=== PATIENT | female | born 1950 | race Caucasian/White ===

== ENCOUNTER 2021-09-07 05:34 | Emergency (ER) | payer MEDICARE ==
[~2021-09-07] VITALS: Ht 165.1 cm; Wt 91.3 kg
[~2021-09-07 05:34] MED LIST: ACTOS15 MG PO; ALBU17AE23 IH; LISI1TAB PO; LVT.1T PO; OMEG-12 PO
[2021-09-07] MEDS ORDERED: NS IV 1000 ML 1,000 ML IV SCH (06:00)
[2021-09-07] MEDS ORDERED: ONDANSETRON 4 MG/2 ML (SDV) Z0FRAN IVP ONE (06:00)
[2021-09-07] MEDS ORDERED: KETOROLAC 30 MG/ML VIAL IVP ONE (06:00)
[2021-09-07] MEDS ORDERED: FAMOTIDINE 20MG/2ML IV (PEPCID) IVP ONE (06:00)
--- NOTE | 2021-09-07 06:01 | ED Cardiac General ---
History of Present Illness General Chief Complaint: Cardiac/General Problems Stated Complaint: CHEST/BACK PAIN;VOMITTING;ABD PAIN Source: patient Exam Limitations: no limitations History of Present Illness Date Seen by Provider: Sep 07, 2021 Time Seen by Provider: 05:45 Initial Comments Patient is a 71-year-old female with history of type 2 diabetes and hyperlipidemia who wakes with body aches fever chills, chest, back and epigastric pain with nausea and vomiting. She states she has vomited multiple times throughout the evening. She denies any diarrhea. Reports cough with green phlegm production. Denies sore throat, shortness of breath wheezing or exertional chest pain. No other symptoms or complaints. Timing/Duration: 4-6 hours Severity: moderate Activities at Onset: other Prior CP/Workup: other Associated Systoms: Other Allergies and Home Medications Allergies Coded Allergies: No Known Drug Allergies (Unverified , 12/30/10) Patient Home Medication List Home Medication List Reviewed: Yes Albuterol (Ventolin) 17 Gm Aerosol, 2 PUFF IH Q4H PRN, (Reported) Entered as Reported by: GABBIE QUINTEROS on 12/30/10910 Last Action: Last Taken Edited Levothyroxine Sodium (Levothyroxine 100 Mcg Tab) 100 Mcg Tablet, 1 EACH PO DAILY, (Reported) Entered as Reported by: GABBIE QUINTEROS on 12/30/10917 Last Action: Reviewed [place]-3/Dha/Epa/Fish Oil (Fish Oil 1,000 Mg Ec Softgel) 1 Each Capsule.dr, 3 EACH PO HS, (Reported) Entered as Reported by: GABBIE QUINTEROS on 12/30/10910 Last Action: Edited Discontinued Medications Hctz/Lisinopril (Lisinopril-Hctz 20-12.5 Mg Tab) 1 Each Tablet, 1 EACH PO DAILY, (Reported) Discontinued Reason: Referral/FU Appt-Addtl Entered as Reported by: GABBIE QUINTEROS on 12/30/10910 Last Action: Discontinued Pioglitazone Hcl (Actos) 15 Mg Tablet, 1 TAB PO DAILY, (Reported) Discontinued Reason: Referral/FU Appt-Addtl Entered as Reported by: GABBIE QUINTEROS on 12/30/10910 Last Action: Discontinued Review of Systems Review of Systems Constitutional: see HPI EENTM: See HPI Respiratory: See HPI Cardiovascular: See HPI Gastrointestinal: See HPI Genitourinary: See HPI Musculoskeletal: see HPI Skin: see HPI Psychiatric/Neurological: See HPI Endocrine: See HPI Hematologic/Lymphatic: See HPI All Other Systems Reviewed Negative Unless Noted: Yes Past Lmzuunw-Wvjbph-Sbhxba Hx Patient Social History Tobacco Use?: No Past Medical History Reproductive Disorders: No Physical Exam Vital Signs Vital Signs - First Documented 09/07/21 05:39 Temp 36.2 Pulse 78 Resp 20 B/P (MAP) 201/86 (124) Pulse Ox 95 O2 Delivery Room Air Capillary Refill : Height, Weight, BMI Height: '" Weight: lbs. oz. kg; BMI Method: General Appearance: No Apparent Distress, WD/WN HEENT: PERRL/EOMI, Normal ENT Inspection, Pharynx Normal, Moist Mucous Membranes Neck: Full Range of Motion, Non Tender, Supple Respiratory: Chest Non Tender, Lungs Clear Cardiovascular: Regular Rate, Rhythm, No Edema Gastrointestinal: Non Tender, Soft Extremity: Normal Capillary Refill, Non Tender, No Calf Tenderness Neurologic/Psychiatric: Alert, Oriented x3, No Motor/Sensory Deficits, document management analyst II- XII Norm as Tested Skin: Normal Color, Warm/Dry Focused Exam Sepsis Stage: Ruled Out Lactate Level 09/07/21 05:55: Lactic Acid Level 1.43 Lactic Acid Level Laboratory Tests Test 09/07/21 05:55 Lactic Acid Level 1.43 MMOL/L (0.50-2.00) Progress/Results/Core Measures Results/Orders Lab Results Laboratory Tests Test 09/07/21 05:55 09/07/21 05:56 09/07/21 06:05 Range/Units White Blood Count 13.9 H 4.3-11.0 10^3/uL Red Blood Count 4.61 3.80-5.11 10^6/uL Hemoglobin 14.3 11.5-16.0 g/dL Hematocrit 40 35-52 % Mean Corpuscular Volume 87 80-99 fL Mean Corpuscular Hemoglobin 31 25-34 pg Mean Corpuscular Hemoglobin Concent 36 32-36 g/dL Red Cell Distribution Width 12.1 10.0-14.5 % Platelet Count 246 130-400 10^3/uL Mean Platelet Volume 10.3 9.0-12.2 fL Immature Granulocyte % (Auto) 0 % Neutrophils (%) (Auto) 83 H 42-75 % Lymphocytes (%) (Auto) 12 12-44 % Monocytes (%) (Auto) 5 0-12 % Eosinophils (%) (Auto) 0 0-10 % Basophils (%) (Auto) 0 0-10 % Neutrophils # (Auto) 11.5 H 1.8-7.8 10^3/uL Lymphocytes # (Auto) 1.7 1.0-4.0 10^3/uL Monocytes # (Auto) 0.7 0.0-1.0 10^3/uL Eosinophils # (Auto) 0.0 0.0-0.3 10^3/uL Basophils # (Auto) 0.0 0.0-0.1 10^3/uL Immature Granulocyte # (Auto) 0.1 0.0-0.1 10^3/uL Sodium Level 137 135-145 MMOL/L Potassium Level 3.7 3.6-5.0 MMOL/L Chloride Level 97 L 98-107 MMOL/L Carbon Dioxide Level 26 21-32 MMOL/L Anion Gap 14 5-14 MMOL/L Blood Urea Nitrogen 12 7-18 MG/DL Creatinine 0.57 L 0.60-1.30 MG/DL Estimat Glomerular Filtration Rate 96 BUN/Creatinine Ratio 21 Glucose Level 249 H 70-105 MG/DL Lactic Acid Level 1.43 0.50-2.00 MMOL/L Calcium Level 9.3 8.5-10.1 MG/DL Corrected Calcium 9.1 8.5-10.1 MG/DL Total Bilirubin 1.0 0.1-1.0 MG/DL Aspartate Amino Transf (AST/SGOT) 12 5-34 U/L Alanine Aminotransferase (ALT/SGPT) 9 0-55 U/L Alkaline Phosphatase 137 H 40-136 U/L Troponin I < 0.30 <0.30 NG/ML Total Protein 7.3 6.4-8.2 GM/DL Albumin 4.2 3.2-4.5 GM/DL Influenza Type A Antigen NEGATIVE NEGATIVE Influenza Type B Antigen NEGATIVE NEGATIVE Urine Color YELLOW Urine Clarity CLEAR Urine pH 7.0 5-9 Urine Specific [place] 1.025 H 1.016-1.022 Urine Protein TRACE H NEGATIVE Urine Glucose (UA) 1+ H NEGATIVE Urine Ketones 2+ H NEGATIVE Urine Nitrite NEGATIVE NEGATIVE Urine Bilirubin NEGATIVE NEGATIVE Urine Urobilinogen 0.2 < = 1.0 MG/DL Urine Leukocyte Esterase NEGATIVE NEGATIVE Urine RBC (Auto) NEGATIVE NEGATIVE Urine RBC NONE /HPF Urine WBC 0-2 /HPF Urine Squamous Epithelial Cells 0-2 /HPF Urine Crystals NONE /LPF Urine Bacteria NEGATIVE /HPF Urine Casts NONE /LPF Urine Mucus MODERATE H /LPF Urine Culture Indicated NO My Orders Orders - SHYAM CLAYTON DO Cbc With Automated Diff (09/07/21 05:48) Comprehensive Metabolic Panel (09/07/21 05:48) Urinalysis (09/07/21 05:48) Chest 1 View Ap/Pa Only (09/07/21 05:48) Influenza A & B Antigens (09/07/21 05:48) Ekg Tracing (09/07/21 05:48) Ns Iv 1000 Ml (Sodium Chloride 0.9%) (09/07/21 06:00) Ketorolac Injection (Toradol Injection) (09/07/21 06:00) Ondansetron Injection (Zofran Injectio (09/07/21 06:00) Lactic Acid Analyzer (09/07/21 05:51) Troponin I Fs (09/07/21 05:51) Famotidine Injection (Pepcid Injection) (09/07/21 06:00) Medications Given in ED Current Medications Medications Dose Ordered Sig/Jona Route Start Time Stop Time Status Last Admin Dose Admin Famotidine 20 mg ONCE ONCE IVP 09/07/21 06:00 09/07/21 06:01 DC 09/07/21 06:02 20 MG Ketorolac Tromethamine 30 mg ONCE ONCE IVP 09/07/21 06:00 09/07/21 06:01 DC 09/07/21 06:03 30 MG Ondansetron HCl 4 mg ONCE ONCE IVP 09/07/21 06:00 09/07/21 06:01 DC 09/07/21 06:03 4 MG Vital Signs/I&O 09/07/21 05:39 Temp 36.2 Pulse 78 Resp 20 B/P (MAP) 201/86 (124) Pulse Ox 95 O2 Delivery Room Air Departure Communication (Admissions) Chest x-ray: No acute cardiopulmonary disease per radiology report. EKG: Normal sinus rhythm, no acute ST-T wave changes Patient with acute gastritis with vomiting and fever and body aches in addition to chest pain hypertension. Symptoms consistent with GI illness prevalent in the community. IV fluids, antiemetics and pain medication given. Lactic acid reassuring. Patient is a known type II diabetic. Recommendations are for supportive care, watchful waiting and close PCP follow-up for reevaluation and glycemic control. Return precautions reviewed. Patient verbalizes understanding and agreement with discharge instructions prior to departure. Impression Primary Impression: Acute gastritis Disposition: HOME, SELF-CARE Condition: Stable Departure-Patient Inst. Decision time for Depature: 06:56 Referrals: MARISELA SANFORD DO (PCP/Family) Primary Care Physician Patient Instructions: Gastritis (DC) Add. Discharge Instructions: You were evaluated in the emergency department for nausea and vomiting, fever cough and body aches. Your symptoms are most consistent with a GI illness common in the community. Please take newly prescribed nausea medications as directed and Tylenol as needed for fever. Drink clear liquids only for the next 6 to 12 hours, then gradually increase to a bland diet as tolerated. Follow-up with your PCP in 2 to 3 days for reevaluation and review of diabetes. Return to the ED if new or worsening symptoms. All discharge instructions reviewed with patient and/or family. Voiced understanding. Scripts Famotidine (Pepcid) 20 Mg Tablet 20 MG PO BID, #30 TAB Prov: SHYAM CLAYTON DO 09/07/21 Ondansetron (Ondansetron Odt) 4 Mg Tab.rapdis 4 MG PO Q6H, #10 TAB Prov: SHYAM CLAYTON DO 09/07/21 SHYAM CLAYTON DO Sep 07, 2021 06:01
--- NOTE | 2021-09-07 06:03 | Diagnostic Imaging Report ---
INDICATION: cough COMPARISON: None FINDINGS: Single frontal view of the chest demonstrates normal heart size and pulmonary vascularity. The lungs are well aerated and clear. No large pleural effusion or pneumothorax is seen. The visualized osseous structures show no acute abnormalities. IMPRESSION: 1. No acute cardiopulmonary process. Dictated by: Dictated on workstation # [id number]
[2021-09-07 06:29] LABS: BASOPHILS % (AUTO) 0 % (0-10); EOSINOPHILS % (AUTO) 0 % (0-10); HEMATOCRIT 40 % (35-52); HEMOGLOBIN 14.3 g/dL (11.5-16.0); LYMPHOCYTES # (AUTO) 1.7 10^3/uL (1.0-4.0); LYMPHOCYTES % (AUTO) 12 % (12-44); MEAN CORPUSCULAR HEMOGLOBIN 31 pg (25-34); MEAN CORPUSCULAR HGB CONC 36 g/dL (32-36); MEAN CORPUSCULAR VOLUME 87 fL (80-99); MEAN PLATELET VOLUME 10.3 fL (9.0-12.2); MONOCYTES # (AUTO) 0.7 10^3/uL (0.0-1.0); MONOCYTES % (AUTO) 5 % (0-12); NEUTROPHILS # (AUTO) 11.5 10^3/uL (1.8-7.8); NEUTROPHILS % (AUTO) 83 % (42-75); PLATELET COUNT 246 10^3/uL (130-400); WHITE BLOOD COUNT 13.9 10^3/uL (4.3-11.0)
[2021-09-07 06:31] LABS: BILIRUBIN,URINE NEGATIVE (NEGATIVE); CLARITY,URINE CLEAR; COLOR,URINE YELLOW; GLUCOSE, URINE (UA) 1+ (NEGATIVE); KETONES,URINE 2+ (NEGATIVE); LEUKOCYTE ESTERASE ,URINE NEGATIVE (NEGATIVE); NITRITE,URINE NEGATIVE (NEGATIVE); PROTEIN,URINE TRACE (NEGATIVE)
[2021-09-07 06:39] LABS: BACTERIA,URINE NEGATIVE /HPF; SQUAMOUS EPITHELIAL CELL,UR 0-2 /HPF; WBC,URINE 0-2 /HPF
[2021-09-07 06:45] LABS: ALANINE AMINOTRANSFERASE 9 U/L (0-55); ALKALINE PHOSPHATASE 137 U/L (40-136); BUN/CREATININE RATIO 21; CALCIUM 9.3 MG/DL (8.5-10.1); CARBON DIOXIDE 26 MMOL/L (21-32); CHLORIDE 97 MMOL/L (98-107); CREATININE SERUM 0.57 MG/DL (0.60-1.30); GFR ESTIMATED 96; GLUCOSE 249 MG/DL (70-105); POTASSIUM 3.7 MMOL/L (3.6-5.0); SODIUM 137 MMOL/L (135-145)
[2021-09-07 06:46] LABS: ALBUMIN 4.2 GM/DL (3.2-4.5); TOTAL PROTEIN 7.3 GM/DL (6.4-8.2)
[2021-09-07] MEDS ORDERED: ONDA4TAB11 PO (06:57)
[2021-09-07] MEDS ORDERED: FAMO-119 PO (06:57)
[2021-09-07 07:00] VITALS: BP 158/69
== END 2021-09-07 07:00 | disposition home or self-care (01) ==
LOC: EDUNIT# 05:34 → ER FS 05:36
DX: K29.00 Acute gastritis without bleeding (principal)
CPT/HCPCS: 36415; 71045; 80053; 81000; 83605; 84484; 85025; 87804; 93005; 96374; 96375

== ENCOUNTER 2022-04-07 09:00 | Emergency (ER) | payer MEDICARE ==
[~2022-04-07] VITALS: Ht 165 cm; Wt 89.5 kg
[~2022-04-07 09:00] MED LIST changes: +FAMO-119 PO; +ONDA4TAB11 PO
[2022-04-07 09:11] VITALS: BP 192/79
--- NOTE | 2022-04-07 09:36 | ED Neck-Back Pain/Injury ---
General Chief Complaint: Head/Cervical Problems Stated Complaint: NECK STIFFNESS Nursing Triage Note: Patient has presented to ER with cc of neck pain and stiffness for the last week. Patient reports that even her hands are stiff and not working well. She did taken tylenol for the pain. Source of Information: Patient Exam Limitations: No Limitations (ZORA NAVARRO) History of Present Illness Date Seen by Provider: Apr 07, 2022 Time Seen by Provider: 09:15 Initial Comments This 71 y/o female presents with right upper extremity and neck pain. Patient states onset of her symptoms began in February with right hand and wrist pain. Patient states she had a traumatic lab draw in the right antecubital fossa and is concerned this could have provoked nerve damage. Patient states her pain has gradually gotten worse and has radiated proximally to involve her neck and base of her skull. Patient denies injury to the head, neck, or upper extremity. Patient reports she has had imaging of her right hand and wrist that was negative for fracture(s). Patient denies paresthesias, urinary or bowel incontinence or hesitancy, or saddle anesthesia. Patient denies fever, chills, chest pain, SOA, or abdominal pain. Patient has a PMHx significant for OR, stroke, right carotid stenosis, rectal prolapse, and type 2 diabetes mellitus. Patient states she takes 81mg ASA daily and denies taking other blood thinning agents. Location: C-Spine Timing/Duration: Changing Over Time (onset in February 2022) Severity: Moderate Pain/Injury Location: Upper Extremity (right upper extremity), Neck Radiation: Other (radiation from right upper extremity proximally to neck and base of skull) Modifying Factors: Improves With Immobilization; Worse With Movement; Improves With Rest Associated Symptoms: weakness (associated with pain; no paresthesias described) (ZORA NAVARRO) Initial Comments The right hand psych therapist is weaker than the left and the right hand is mildly edematous. Patient believes the weakness is more so due to pain rather than neurologic deficit. She also states that there is some minor pain and weakness developing in the left hand now. She also has some chronic pain in the right knee. Patient also later reported that she has been out of her thyroid medication and her thyroid was not checked at her last follow-up appointment. (EMMANUEL JARRETT MD) Allergies and Home Medications Allergies Coded Allergies: No Known Drug Allergies (Unverified , 12/30/10) Patient Home Medication List Home Medication List Reviewed: Yes (ZORA NAVARRO) Albuterol (Ventolin) 17 Gm Aerosol, 2 PUFF IH Q4H PRN, (Reported) Entered as Reported by: GABBIE QUINTEROS on 12/30/10 09 Cephalexin (Cephalexin) 500 Mg Tablet, 500 MG PO TID Prescribed by: EMMANUEL BROOKS on 04/07/22 110 Famotidine (Pepcid) 20 Mg Tablet, 20 MG PO BID Prescribed by: SHYAM CLAYTON on 09/07/21 06 Levothyroxine Sodium (Levothyroxine 100 Mcg Tab) 100 Mcg Tablet, 1 EACH PO DAMIAN Y, (Reported) Entered as Reported by: GABBIE QUINTEROS on 12/30/10 0918 [place]-3/Dha/Epa/Fish Oil (Fish Oil 1,000 Mg Ec Softgel) 1 Each Capsule.dr, 3 EACH PO HS, (Reported) Entered as Reported by: GABBIE QUINTEROS on 12/30/10910 Ondansetron (Ondansetron Odt) 4 Mg Tab.rapdis, 4 MG PO Q6H Prescribed by: SHYAM CLAYTON on 09/07/21 06 Prednisone (Prednisone) 20 Mg Tab, 20 MG PO DAILY Prescribed by: EMMANUEL BROOKS on 04/07/22 1104 Review of Systems Constitutional: weakness EENTM: no symptoms reported Respiratory: no symptoms reported Cardiovascular: no symptoms reported Gastrointestinal: diarrhea, other (rectal prolapse) Genitourinary: no symptoms reported; No incontinence : No Musculoskeletal: joint pain (bilateral upper extremities; right more painful than the left), joint swelling, muscle pain, muscle stiffness, neck pain Skin: no symptoms reported Psychiatric/Neurological: No Symptoms Reported; Denies Headache, Denies Numbness, Denies Paresthesia (ZORA NAVARRO) All Other Systems Reviewed Negative Unless Noted: Yes (ZORA NAVARRO) Past Yaovrsi-Tsgcja-Fhghlr Hx Patient Social History Tobacco Use?: No Use of E-Cig and/or Vaping dev: No Substance use?: No Alcohol Use?: No (ZORA NAVARRO) Tobacco Use?: No Use of E-Cig and/or Vaping dev: No Substance use?: No Alcohol Use?: No (EMMANUEL JARRETT MD) Past Medical History Surgery/Hospitalization HX: OR-2015, COPD, Chronic bronchitis, DM Type 2, Hypothyroidism, HTN (off meds 3 yrs r/t weight loss), stroke, right carotid artery stenosis/blockage Surgeries: Yes Rectal (rectal prolapse repai), Vascular Surgery (right carotid endarterectomy) Heart Attack Stroke Reproductive Disorders: No (ZORA NAVARRO) Physical Exam Vital Signs Vital Signs - First Documented 04/07/22 09:11 Temp 36.3 Pulse 103 Resp 18 B/P (MAP) 192/79 (116) Pulse Ox 98 O2 Delivery Room Air (EMMANUEL JARRETT MD) Vital Signs Capillary Refill : (ZORA NAVARRO) Height, Weight, BMI Height: '" Weight: lbs. oz. kg; 32.00 BMI Method: General Appearance: No Apparent Distress, WD/WN HEENT: PERRL/EOMI Cardiovascular: Other (possible PVCs auscultated on exam ) Respiratory: Lungs Clear, Normal Breath Sounds, No Accessory Muscle Use, No Respiratory Distress Back: Other (cervical spine tendernerness with palpation, cervical paraspinal musculature tenderness with palpation) Extremity: Other (Upper extremity: sensory intact bilaterally C5-C7, muscle strength R: 4/5, L: 5/5, ROM mildly diminished in right hand, tenderness of wrist and MCP joints on the right with palpation) Neurologic/Psychiatric: Alert, Normal Mood/Affect Skin: Normal Color, Warm/Dry Lymphatic: No Adenopathy This exam was performed by Dr. Jarrett and dictated to me (ZORA NAVARRO) Extremity: Other (Upper extremity: sensory intact bilaterally C5-C7, muscle strength R: 4/5, L: 5/5, ROM mildly diminished in right hand, tenderness of wrist and MCP joints on the right with palpation. Mild erythema of the right hand.) Neurologic/Psychiatric: Motor Weakness (Decreased psych therapist strength on the right) (EMMANUEL JARRETT MD) Progress/Results/Core Measures Results/Orders Lab Results Laboratory Tests Test 04/07/22 09:41 Range/Units White Blood Count 12.9 H 4.3-11.0 10^3/uL Red Blood Count 4.85 3.80-5.11 10^6/uL Hemoglobin 15.1 11.5-16.0 g/dL Hematocrit 42 35-52 % Mean Corpuscular Volume 86 80-99 fL Mean Corpuscular Hemoglobin 31 25-34 pg Mean Corpuscular Hemoglobin Concent 36 32-36 g/dL Red Cell Distribution Width 12.0 10.0-14.5 % Platelet Count 260 130-400 10^3/uL Mean Platelet Volume 9.2 9.0-12.2 fL Immature Granulocyte % (Auto) 0 % Neutrophils (%) (Auto) 70 42-75 % Lymphocytes (%) (Auto) 22 12-44 % Monocytes (%) (Auto) 7 0-12 % Eosinophils (%) (Auto) 1 0-10 % Basophils (%) (Auto) 0 0-10 % Neutrophils # (Auto) 9.1 H 1.8-7.8 10^3/uL Lymphocytes # (Auto) 2.8 1.0-4.0 10^3/uL Monocytes # (Auto) 0.9 0.0-1.0 10^3/uL Eosinophils # (Auto) 0.1 0.0-0.3 10^3/uL Basophils # (Auto) 0.0 0.0-0.1 10^3/uL Immature Granulocyte # (Auto) 0.1 0.0-0.1 10^3/uL Erythrocyte Sedimentation Rate 42 H 0-30 MM/HR Sodium Level 138 135-145 MMOL/L Potassium Level 4.1 3.6-5.0 MMOL/L Chloride Level 98 98-107 MMOL/L Carbon Dioxide Level 24 21-32 MMOL/L Anion Gap 16 H 5-14 MMOL/L Blood Urea Nitrogen 22 H 7-18 MG/DL Creatinine 0.72 0.60-1.30 MG/DL Estimat Glomerular Filtration Rate 88 BUN/Creatinine Ratio 31 Glucose Level 216 H 70-105 MG/DL Calcium Level 9.7 8.5-10.1 MG/DL Corrected Calcium 9.5 8.5-10.1 MG/DL Total Bilirubin 0.6 0.1-1.0 MG/DL Aspartate Amino Transf (AST/SGOT) 13 5-34 U/L Alanine Aminotransferase (ALT/SGPT) 6 0-55 U/L Alkaline Phosphatase 134 40-136 U/L C-Reactive Protein 6.33 H <0.50 MG/DL Total Protein 8.0 6.4-8.2 GM/DL Albumin 4.2 3.2-4.5 GM/DL (EMMANUEL JARRETT MD) My Orders Orders - EMMANUEL JARRETT MD Cbc With Automated Diff (04/07/22:) Comprehensive Metabolic Panel (04/07/22:) Erythrocyte Sedimentation Rate (04/07/22:) Crp Fs (04/07/22:) Ct Head/Cervical Spine Wo (04/07/22:) Ed Iv/Invasive Line Start (04/07/22:) Uric Acid (04/07/22:) Ra Factor (Rheumatoid Factor) (04/07/22:) Monitor-Rhythm Ecg Trace Only (04/07/22 09:42) Ketorolac Injection (Toradol Injection) (04/07/22 11:00) Thyroid Stimulating Hormone (04/07/22 11:06) Free T4 (Free Thyroxine) (04/07/22 11:06) (EMMANUEL JARRETT MD) Medications Given in ED Current Medications Medications Dose Ordered Sig/Jona Route Start Time Stop Time Status Last Admin Dose Admin Ketorolac Tromethamine 15 mg ONCE ONCE IVP 04/07/22 11:00 04/07/22 11:01 DC 04/07/22 11:00 15 MG (EMMANUEL JARRETT MD) Vital Signs/I&O 04/07/22 09:11 Temp 36.3 Pulse 103 Resp 18 B/P (MAP) 192/79 (116) Pulse Ox 98 O2 Delivery Room Air (EMMANUEL JARRETT MD) Blood Pressure Mean: 116 Progress Progress Note : Progress Note Etiology of patient's symptoms was unclear based on initial exam and history. [employer] etiology was investigated with CT of the head and cervical spine. There was moderate cervical spinal stenosis noted which may be a contributing factor. She was advised to discuss this further with her primary care provider. CT of the head was unremarkable for acute abnormalities. Labs revealed mildly elevated WBC, ESR, and CRP. Chronic inflammatory conditions such as rheumatoid arthritis or gout was considered. Uric acid and rheumatoid factor were ordered. They are send out studies and were pending at the time of discharge. When patient disclosed that she has not been taking her thyroid medication and her thyroid labs have not been checked recently, free T4 and TSH were added to the work-up and were likewise pending. Patient was treated with Toradol 15 mg IV prior to discharge. She was prescribed prednisone and a low-dose burst and Keflex. Although infection was thought unlikely, her elevated WBC and CRP suggested infection as a possibility. There is no overt cellulitis or monarticular arthritis evident on exam. We discussed discharge instructions at length. See discharge instructions for details. (EMMANUEL JARRETT MD) Diagnostic Imaging Diagonstic Imaging: CT Plain Films/CT/US/NM/MRI: c-spine, head Comments NAME: SAMPSON CURRAN [facility] REC#: [id number] PT STATUS: REG ER : 1950 PHYSICIAN: EMMANUEL JARRETT MD ADMIT DATE: 04/07/22/ER FS Signed Date of Exam:04/07/22 CT HEAD/CERVICAL SPINE WO PROCEDURE: CT head and CT cervical spine without contrast. TECHNIQUE: Multiple contiguous axial images were obtained through the brain and cervical spine without the use of intravenous contrast. Sagittal and coronal reformations through the cervical spine were then performed. Auto Exposure Controls were utilized during the CT exam to meet ALARA standards for radiation dose reduction. INDICATION: Neck pain and stiffness. Hand and arm numbness and symptoms present one week's duration. I have no priors. FINDINGS: There is well demarcated hypodensity in the posterior division of the right MCA territory consistent with a nonacute ischemic infarct. Precise acuity is unclear. There is suggestion of at least some degree of volume loss but the process is not entirely fluid density and this may be a subacute in its stage. Its beyond the window for any potential embolectomy however if more precise differentiation from a old chronic versus a more recent infarct is needed this could be addressed at MR to evaluate for diffusion restriction. No acute appearing abnormality. There is no evidence for hemorrhage and no mass effect. No findings of elevated intracranial pressures. Orbits, sinuses and calvarium nonacute. There are intracranial atherosclerotic vascular calcifications. Cervical spine: No cervical fracture or traumatic malalignment. There are degenerative changes to the discs, endplates and facets throughout the cervical spine. At C5-C6 this results in mild to moderate canal and mild left foraminal stenosis. At C6-C7 there is a prominent midline bulging disc. In addition endplate osteophytes. This results in moderate canal and mild bi-foraminal stenosis. No fracture, bony destruction, paravertebral fluid collection or acute appearing abnormalities. There are carotid atherosclerotic vascular calcifications and surgical clips in the right neck. Craniocervical relationship in the central skull base appeared intact. IMPRESSION: 1. Nonacute but perhaps recent ischemic infarct posterior division right MCA territory without its mass effect or hemorrhagic transformation. Head CT otherwise negative. CT CERVICAL: Degenerative changes with a mild to moderate lower cervical canal and foraminal stenoses detailed above, however no fracture or acute bony abnormality. Dictated by: Dictated on workstation # [id number] Dict: 04/07/22 0958 Trans: 04/07/22 1022 [facility] [id number] Interpreted by: DOUGLAS REYNOSO Electronically signed by: DOUGLAS REYNOSO 04/07/22 1022 (ZORA NAVARRO) Comments CT scan viewed by me and report reviewed. (EMMANUEL JARRETT MD) Departure Impression Primary Impression: Cervical spinal stenosis Additional Impressions: Polyarthralgia Right arm weakness Hypothyroidism Qualified Codes: E03.9 - Hypothyroidism, unspecified Disposition: 01 HOME, SELF-CARE Condition: Improved Departure-Patient Inst. Decision time for Depature: 10:57 (EMMANUEL JARRETT MD) Referrals: MARISELA SANFORD DO (PCP) Primary Care Physician Patient Instructions: ARTHRALGIA, Spinal Stenosis, Spinal Stenosis Strengthenin g Exercises Add. Discharge Instructions: Narrowing of your spinal canal (called spinal stenosis) may be a contributing factor to your pain and arm weakness. Please follow-up with your primary care provider next week and discuss the findings on your CT report from the ER. If symptoms persist, follow-up imaging with MRI of the cervical spine, and possibly the brain, may be recommended by your primary care provider. Other pathology such as rheumatoid arthritis or gout may be contributing to your joint pains. A uric acid level was drawn to test for gout. The results of that test should be available by this evening. You are welcome to contact the [place] emergency room this evening or after to obtain results from that test. If your uric acid level is high, there are specific treatments for gout that may be prescribed. Likewise, your tests for thyroid function should be available by this evening. Discussed the results of those tests with your primary care provider. A test for rheumatoid arthritis called rheumatoid factor was ordered. That test is run in a lab in [place] and will not be available for several days. Please discuss the results of that test with your primary care provider at a follow-up appointment. A course of prednisone has been prescribed to help combat your pain and inflammation. Prednisone may cause stomach upset and sleep disturbance. Take with food or milk early in the day to avoid stomach upset and sleep disturbance. For treatment of acute pain you may take Tylenol (acetaminophen) up to 1000 mg every 6 hours as needed. You may sparingly add ibuprofen up to 400 mg 3 times a day if needed for additional pain relief. Take ibuprofen with food or milk to help avoid stomach upset. If you start developing stomach upset or pain, stop ibuprofen. Although infection is unlikely, your lab work demonstrated a pattern that is sometimes seen with bacterial infection. Complete the antibiotics as prescribed as a precaution. Return to the emergency room if you have worsening symptoms despite following these instructions or if you develop new symptoms such as fever. Breathing these discharge instructions with you to your follow-up appointment. All discharge instructions reviewed with patient and/or family. Voiced unders tanding. Scripts Cephalexin (Cephalexin) 500 Mg Tablet 500 MG PO TID, #21 TAB Prov: EMMANUEL JARRETT MD 04/07/22 Prednisone (Prednisone) 20 Mg Tab 20 MG PO DAILY, #4 TAB 0 Refills Prov: EMMANUEL JARRETT MD 04/07/22 Medical Student Attestation and Attending Note: I have personally interviewed and examined this patient along with Christina Navarro, MS 4. I have reviewed student documentation including history, physical, and assessments. I agree with the documentation except where otherwise noted. (EMMANUEL JARRETT MD) ZORA NAVARRO Apr 07, 2022 09:36 EMMANUEL JARRETT MD Apr 07, 2022 11:02
[2022-04-07 09:58] LABS: BASOPHILS % (AUTO) 0 % (0-10); EOSINOPHILS # (AUTO) 0.1 10^3/uL (0.0-0.3); EOSINOPHILS % (AUTO) 1 % (0-10); HEMATOCRIT 42 % (35-52); HEMOGLOBIN 15.1 g/dL (11.5-16.0); LYMPHOCYTES # (AUTO) 2.8 10^3/uL (1.0-4.0); LYMPHOCYTES % (AUTO) 22 % (12-44); MEAN CORPUSCULAR HEMOGLOBIN 31 pg (25-34); MEAN CORPUSCULAR HGB CONC 36 g/dL (32-36); MEAN CORPUSCULAR VOLUME 86 fL (80-99); MEAN PLATELET VOLUME 9.2 fL (9.0-12.2); MONOCYTES # (AUTO) 0.9 10^3/uL (0.0-1.0); MONOCYTES % (AUTO) 7 % (0-12); NEUTROPHILS # (AUTO) 9.1 10^3/uL (1.8-7.8); NEUTROPHILS % (AUTO) 70 % (42-75); PLATELET COUNT 260 10^3/uL (130-400); WHITE BLOOD COUNT 12.9 10^3/uL (4.3-11.0)
--- NOTE | 2022-04-07 10:15 | Diagnostic Imaging Report ---
PROCEDURE: CT head and CT cervical spine without contrast. TECHNIQUE: Multiple contiguous axial images were obtained through the brain and cervical spine without the use of intravenous contrast. Sagittal and coronal reformations through the cervical spine were then performed. Auto Exposure Controls were utilized during the CT exam to meet ALARA standards for radiation dose reduction. INDICATION: Neck pain and stiffness. Hand and arm numbness and symptoms present one week's duration. I have no priors. FINDINGS: There is well demarcated hypodensity in the posterior division of the right MCA territory consistent with a nonacute ischemic infarct. Precise acuity is unclear. There is suggestion of at least some degree of volume loss but the process is not entirely fluid density and this may be a subacute in its stage. Its beyond the window for any potential embolectomy however if more precise differentiation from a old chronic versus a more recent infarct is needed this could be addressed at MR to evaluate for diffusion restriction. No acute appearing abnormality. There is no evidence for hemorrhage and no mass effect. No findings of elevated intracranial pressures. Orbits, sinuses and calvarium nonacute. There are intracranial atherosclerotic vascular calcifications. Cervical spine: No cervical fracture or traumatic malalignment. There are degenerative changes to the discs, endplates and facets throughout the cervical spine. At C5-C6 this results in mild to moderate canal and mild left foraminal stenosis. At C6-C7 there is a prominent midline bulging disc. In addition endplate osteophytes. This results in moderate canal and mild bi-foraminal stenosis. No fracture, bony destruction, paravertebral fluid collection or acute appearing abnormalities. There are carotid atherosclerotic vascular calcifications and surgical clips in the right neck. Craniocervical relationship in the central skull base appeared intact. IMPRESSION: 1. Nonacute but perhaps recent ischemic infarct posterior division right MCA territory without its mass effect or hemorrhagic transformation. Head CT otherwise negative. CT CERVICAL: Degenerative changes with a mild to moderate lower cervical canal and foraminal stenoses detailed above, however no fracture or acute bony abnormality. Dictated by: Dictated on workstation # [id number]
[2022-04-07 10:23] LABS: BILIRUBIN,TOTAL 0.6 MG/DL (0.1-1.0); CALCIUM 9.7 MG/DL (8.5-10.1); CREATININE SERUM 0.72 MG/DL (0.60-1.30); POTASSIUM 4.1 MMOL/L (3.6-5.0)
[2022-04-07 10:24] LABS: ALBUMIN 4.2 GM/DL (3.2-4.5)
[2022-04-07 10:37] LABS: ERYTHROCYTE SEDIMENTATION RATE 42 MM/HR (0-30)
[2022-04-07] MEDS ORDERED: KETOROLAC 30 MG/ML VIAL IVP ONE (11:00)
[2022-04-07] MEDS ORDERED: PRD20T PO (11:04)
[2022-04-07] MEDS ORDERED: CEPH500T PO (11:04)
[2022-04-07 14:48] LABS: URIC ACID 5.7 MG/DL (2.6-7.2)
[2022-04-07 15:08] LABS: FREE T4 (FREE THYROXINE) 0.99 NG/DL (0.70-1.48)
== END 2022-04-07 11:10 | disposition home or self-care (01) ==
LOC: EDUNIT# 09:00 → ER FS 09:02
DX: M48.02 Spinal stenosis, cervical region (principal); E03.9 Hypothyroidism, unspecified; M25.50 Pain in unspecified joint; R53.1 Weakness; I25.2 Old myocardial infarction; D72.829 Elevated white blood cell count, unspecified; R79.82 Elevated C-reactive protein (CRP); R70.0 Elevated erythrocyte sedimentation rate; Z79.82 Long term (current) use of aspirin; Z28.310 Unvaccinated for COVID-19
CPT/HCPCS: 36415; 70450; 72125; 80053; 84439; 84443; 84550; 85025; 85652; 86141; 86431; 93041

== ENCOUNTER 2022-10-12 21:32 | Emergency (ER) | payer MEDICARE ==
[~2022-10-12] VITALS: Ht 165.1 cm; Wt 92.0 kg
[~2022-10-12 21:32] MED LIST changes: +CEPH500T PO; +PRD20T PO
--- NOTE | 2022-10-12 21:47 | ED Chest Pain ---
General Chief Complaint: Chest Pain Stated Complaint: CP Source: patient Exam Limitations: no limitations History of Present Illness Date Seen by Provider: Oct 12, 2022 Time Seen by Provider: 21:35 Initial Comments 72-year-old female presents emergency department today for chest pain. She states she had a heart attack in 2014 that was concerned when she has been having discomfort in her left anterior chest for the last 2 days. No radiation. No obvious aggravating or alleviating factors. It has been intermittent in nature but she is not really sure how long it last when it comes on. At present she states she is pain-free. She felt like the pain may have gotten a little bit worse this evening which was the reason for presentation. No fevers chills cough nausea vomiting or diaphoresis. No abdominal pain or changes in bowel or bladder habits. She is quite hypertensive on arrival. She tells me she has not been taking her blood pressure medicines for some time. All other systems reviewed and negative except documented per HPI. Voice recognition software was used to help create this chart Allergies and Home Medications Allergies Coded Allergies: No Known Drug Allergies (Unverified , 12/30/10) Patient Home Medication List Home Medication List Reviewed: Yes Albuterol (Ventolin) 17 Gm Aerosol, 2 PUFF IH Q4H PRN, (Reported) Entered as Reported by: GABBIE QUINTEROS on 12/30/10 0911 Cephalexin (Cephalexin) 500 Mg Tablet, 500 MG PO TID Prescribed by: EMMANUEL BROOKS on 04/07/22 1104 Famotidine (Pepcid) 20 Mg Tablet, 20 MG PO BID Prescribed by: SHYAM CLAYTON on 09/07/21 0657 Levothyroxine Sodium (Levothyroxine 100 Mcg Tab) 100 Mcg Tablet, 1 EACH PO DAILY, (Reported) Entered as Reported by: GABBIE QUINTEROS on 12/30/10 0918 [place]-3/Dha/Epa/Fish Oil (Fish Oil 1,000 Mg Ec Softgel) 1 Each Capsule.dr, 3 EACH PO HS, (Reported) Entered as Reported by: GABBIE QUINTEROS on 12/30/10 0911 Ondansetron (Ondansetron Odt) 4 Mg Tab.rapdis, 4 MG PO Q6H Prescribed by: SHYAM CLAYTON on 09/07/21 0657 Prednisone (Prednisone) 20 Mg Tab, 20 MG PO DAILY Prescribed by: EMMANUEL BROOKS on 04/07/22 1104 Review of Systems Review of Systems Constitutional: see HPI Past Ctpxchd-Tnpypm-Pytpcf Hx Patient Social History Tobacco Use?: No Substance use?: No Alcohol Use?: No Pt feels they are or have been: No Past Medical History Surgery/Hospitalization HX: Heart Attack, Stroke, Diabetic Surgeries: Yes Rectal, Vascular Surgery Heart Attack Stroke Reproductive Disorders: No Physical Exam Vital Signs Vital Signs - First Documented 10/12/22 21:33 Temp 36.7 Pulse 101 Resp 23 B/P (MAP) 224/99 (140) Pulse Ox 96 O2 Delivery Room Air Capillary Refill : Height, Weight, BMI Height: '" Weight: lbs. oz. kg; 32.00 BMI Method: General Appearance: No Apparent Distress, WD/WN HEENT: Normal ENT Inspection, Pharynx Normal Neck: Full Range of Motion, Normal Inspection, Non Tender, Supple Respiratory: Chest Non Tender, Lungs Clear, Normal Breath Sounds, No Accessory Muscle Use, No Respiratory Distress Cardiovascular: Regular Rate, Rhythm, No Edema, No Gallop, No JVD, No Murmur, Normal Peripheral Pulses, Other (Hypertension) Gastrointestinal: Normal Bowel Sounds, Non Tender, Soft Extremity: Normal Capillary Refill, Normal Inspection, No Calf Tenderness, No Pedal Edema Neurologic/Psychiatric: Alert, Oriented x3, Normal Mood/Affect Skin: Normal Color, Warm/Dry Progress/Results/Core Measures Results/Orders Lab Results Laboratory Tests Test 10/12/22 21:42 Range/Units White Blood Count 8.2 4.3-11.0 10^3/uL Red Blood Count 4.88 3.80-5.11 10^6/uL Hemoglobin 14.9 11.5-16.0 g/dL Hematocrit 43 35-52 % Mean Corpuscular Volume 88 80-99 fL Mean Corpuscular Hemoglobin 31 25-34 pg Mean Corpuscular Hemoglobin Concent 35 32-36 g/dL Red Cell Distribution Width 12.4 10.0-14.5 % Platelet Count 226 130-400 10^3/uL Mean Platelet Volume 9.2 9.0-12.2 fL Immature Granulocyte % (Auto) 0 % Neutrophils (%) (Auto) 54 42-75 % Lymphocytes (%) (Auto) 35 12-44 % Monocytes (%) (Auto) 8 0-12 % Eosinophils (%) (Auto) 3 0-10 % Basophils (%) (Auto) 1 0-10 % Neutrophils # (Auto) 4.4 1.8-7.8 10^3/uL Lymphocytes # (Auto) 2.8 1.0-4.0 10^3/uL Monocytes # (Auto) 0.6 0.0-1.0 10^3/uL Eosinophils # (Auto) 0.2 0.0-0.3 10^3/uL Basophils # (Auto) 0.0 0.0-0.1 10^3/uL Immature Granulocyte # (Auto) 0.0 0.0-0.1 10^3/uL Sodium Level 139 135-145 MMOL/L Potassium Level 4.0 3.6-5.0 MMOL/L Chloride Level 102 98-107 MMOL/L Carbon Dioxide Level 22 21-32 MMOL/L Anion Gap 15 H 5-14 MMOL/L Blood Urea Nitrogen 18 7-18 MG/DL Creatinine 0.81 0.60-1.30 MG/DL Estimat Glomerular Filtration Rate 76 BUN/Creatinine Ratio 22 Glucose Level 288 H 70-105 MG/DL Calcium Level 9.5 8.5-10.1 MG/DL Corrected Calcium 9.3 8.5-10.1 MG/DL Total Bilirubin 0.5 0.1-1.0 MG/DL Aspartate Amino Transf (AST/SGOT) 15 5-34 U/L Alanine Aminotransferase (ALT/SGPT) 7 0-55 U/L Alkaline Phosphatase 135 40-136 U/L Troponin I < 0.30 <0.30 NG/ML Total Protein 7.8 6.4-8.2 GM/DL Albumin 4.3 3.2-4.5 GM/DL My Orders Orders - TESSA BANSAL DO Cbc With Automated Diff (10/12/22 21:46) Chest 1 View Ap/Pa Only (10/12/22 21:46) Comprehensive Metabolic Panel (10/12/22 21:46) Aspirin Chewable Tablet (Baby Aspirin Ch (10/12/22 22:00) Nitroglycerin 0.4 Mg Btl 25's (Nitrostat (10/12/22 22:00) Ed Iv/Invasive Line Start (10/12/22 21:46) Troponin I Fs (10/12/22 21:46) Troponin I Fs (10/12/22 23:30) Medications Given in ED Current Medications Medications Dose Ordered Sig/Jona Route Start Time Stop Time Status Last Admin Dose Admin Aspirin 324 mg ONCE ONCE PO 10/12/22 22:00 10/12/22 22:01 DC 10/12/22 22:00 324 MG Vital Signs/I&O 10/12/22 21:33 Temp 36.7 Pulse 101 Resp 23 B/P (MAP) 224/99 (140) Pulse Ox 96 O2 Delivery Room Air Comment Twelve-lead EKG shows a sinus rhythm with a rate of 86 bpm. There is right bundle branch block. There are normal intervals. Left axis deviation. There are T wave inversions in lead V1 through 3 with a biphasic type T wave in V4. No STEMI. Departure Communication (Admissions) I reviewed an old EKG from September 08 of this year as well as an old EKG from 2010. Her current EKG is similar in appearance. Differential diagnosis includes ACS, pneumonia, pneumothorax, chest wall pain, anxiety, chest pain associate with hypertension. We will go ahead and give her nitroglycerin now to see if this helps with her pain as well as her hypertension. We will get a chest x-ray to rule out pneumonia, pneumothorax. Troponins pending at this time to help with ACS. Overall EKG is unchanged from her previous comparison. Patient is hemodynamically stable. She is completely asymptomatic at this time. Her blood pressure initially went down and then came back up when I went back into the room. She tells me as I am talking to her about her negative test resu lts that she just had a stress test in the [facility] 3 to 4 weeks ago. This was negative according to her chemical pathologist. With that I think she has a low overall risk for major adverse cardiac events in the next 30 days. I advised her to follow-up with her primary doctor for further evaluation and treatment recommendations. She states understanding. I did advise that she start taking her blood pressure medicine once again and follow-up with her primary doctor for evaluation. Impression Primary Impression: Atypical chest pain Additional Impression: Hypertension Qualified Codes: I10 - Essential (primary) hypertension Disposition: HOME, SELF-CARE Condition: Stable Departure-Patient Inst. Referrals: MARISELA SANFORD DO (PCP/Family) Primary Care Physician Add. Discharge Instructions: Your chest pains may be related to spikes in your blood pressure. I recommend you take your blood pressure medicine again regularly. Follow-up with Dr. Sanford to discuss further treatment recommendations. Return to the emergency department if your symptoms change in any way concerning to you. All discharge instructions reviewed with patient and/or family. Voiced understanding. TESSA BANSAL DO Oct 12, 2022 21:47
[2022-10-12] MEDS ORDERED: ASPIRIN 81 MG CHEW (CHILDREN'S ASA) PO ONE (22:00)
[2022-10-12] MEDS ORDERED: NITROGLYCERIN 0.4 MG SL TABS BTL 25'S SL PRN (22:00)
--- NOTE | 2022-10-12 22:00 | Diagnostic Imaging Report ---
INDICATION: Chest pain COMPARISON: 09/07/2021 FINDINGS: Single frontal view of the chest demonstrates normal heart size. Pulmonary vasculature is prominent. Rox B lines are noted. The lungs are well aerated and clear. No large pleural effusion or pneumothorax is seen. The visualized osseous structures show no acute abnormalities. IMPRESSION: 1. Mild vascular congestion. Dictated by: Dictated on workstation # [id number]
[2022-10-12 22:01] LABS: BASOPHILS % (AUTO) 1 % (0-10); EOSINOPHILS # (AUTO) 0.2 10^3/uL (0.0-0.3); EOSINOPHILS % (AUTO) 3 % (0-10); HEMATOCRIT 43 % (35-52); HEMOGLOBIN 14.9 g/dL (11.5-16.0); LYMPHOCYTES # (AUTO) 2.8 10^3/uL (1.0-4.0); LYMPHOCYTES % (AUTO) 35 % (12-44); MEAN CORPUSCULAR HEMOGLOBIN 31 pg (25-34); MEAN CORPUSCULAR HGB CONC 35 g/dL (32-36); MEAN CORPUSCULAR VOLUME 88 fL (80-99); MEAN PLATELET VOLUME 9.2 fL (9.0-12.2); MONOCYTES # (AUTO) 0.6 10^3/uL (0.0-1.0); MONOCYTES % (AUTO) 8 % (0-12); NEUTROPHILS # (AUTO) 4.4 10^3/uL (1.8-7.8); NEUTROPHILS % (AUTO) 54 % (42-75); PLATELET COUNT 226 10^3/uL (130-400); WHITE BLOOD COUNT 8.2 10^3/uL (4.3-11.0)
[2022-10-12 22:13] LABS: CREATININE SERUM 0.81 MG/DL (0.60-1.30)
[2022-10-12 22:14] LABS: ALBUMIN 4.3 GM/DL (3.2-4.5); BILIRUBIN,TOTAL 0.5 MG/DL (0.1-1.0); CALCIUM 9.5 MG/DL (8.5-10.1); TOTAL PROTEIN 7.8 GM/DL (6.4-8.2)
[2022-10-12 22:40] VITALS: BP 145/98
== END 2022-10-12 22:41 | disposition home or self-care (01) ==
LOC: EDUNIT# 21:32 → ER FS 21:33
DX: I10 Essential (primary) hypertension (principal); Z86.79 Personal history of other diseases of the circulatory system; Z28.310 Unvaccinated for COVID-19
CPT/HCPCS: 36415; 71045; 80053; 84484; 85025; 93005